=== PATIENT | female | born 1985 | race Hispanic/Latino ===

== ENCOUNTER 2019-06-03 14:29 | Outpatient (CLI) | payer MEDICAID ==
--- NOTE | 2019-06-03 15:23 | ULT ---
Exam: Pelvic ultrasound HISTORY: Pelvic pain COMPARISON: None TECHNIQUE: Multiple grayscale and color Doppler images were obtained in a transabdominal and transvag inal pelvic ultrasound. Spectral analysis of the Doppler waveforms of the ovaries were performed. FINDINGS: There is a fluid collection seen within the endometrial canal which contains both a pole and a yolk sac. The crown-rump length measures 2.7 mm corresponding to gestational age by ultrasound of 5 weeks and 6 days. Cardiac Doppler evaluation demonstrates heart tones with a heart rate o f 109 bpm. While this is diminished, this is likely attributable to early intrauterine gestation. There is slight heterogeneity in a subchorionic location; although, a discrete collection is not pres ent. Findings are worrisome for small subchorionic hemorrhage along the lower aspect of the gestational sac. The ovaries demonstrate a normal sonographic appearance bilaterally with arterial flow documented in each ovary. No free fluid is seen in the cul-de-sac. IMPRESSION: 1. Suggestion of small subchorionic hemorrhage which is difficult to accurately measure as there is o nly an area of ill-defined heterogeneity. Short interval follow-up evaluation is recommended. 2. Single intrauterine gestation with heart tones documented. Gestational age by measurement of the crown-rump length is 5 weeks and 6 days.
== END 2019-06-03 14:30 | disposition home or self-care (01) ==
LOC: BICULT 14:29
PROVIDERS: ATTEND Nurse Practitioner Family
DX: Z34.91 Encounter for supervision of normal pregnancy, unspecified, first trimester (principal); Z3A.01 Less than 8 weeks gestation of pregnancy
CPT/HCPCS: 76856

== ENCOUNTER 2019-09-08 14:43 | Outpatient (CLI) | payer OTHER ==
--- NOTE | 2019-09-08 15:33 | ULT ---
EXAM: OB ultrasound COMPARISON: None HISTORY: female. Evaluate size, dates, and anatomy. TECHNIQUE: Multiplanar grayscale and color Doppler transabdominal sonographic images are obtained. FINDINGS: There is a single intrauterine gestation in transverse lie with the head to the maternal ri ght presentation. Cardiac Doppler demonstrates heart tones with a heart rate of 138 beats per minute. The placenta is located anteriorly and appears borderline low lying. Follow-up eval uation in 4-6 weeks is recommended. There is a normal amount of amniotic fluid with an amniotic fluid index of 16.92 centimeters. The cervical length based on transabdominal imaging measures 4.2 ce ntimeters. biometry measurements: BPD 4.75 cm -- 20 weeks 3 days HC 17.54 cm -- 20 weeks 1 day AC 15.57 cm -- 20 weeks 6 days FL 3.26 cm -- 20 weeks 2 days The estimated gestational age by ultrasound is 20 weeks 3 day with an TYSHAWN on01/23/2020. Gestational age by the last menstrual period is 20 weeks 1 day. The estimated weight by ultrasound is 354 g (12 ounces). This represents 62 percentile for feta l weight. A 4 chambered heart is visualized. The cerebellum, visualized portions of the spine, kidneys, u rinary bladder, and cord insertion demonstrate a normal sonographic appearance. A three-vessel cord is not visualized, but there is flow on either side of the urinary bladder sugges ting a three-vessel cord.. The nose and lips are not well delineated on this exam. No definite anomalies are seen. IMPRESSION: 1. Single intrauterine gestation in transverse presentation with heart tones documented. Estima rose gestational age by ultrasound is 20 weeks 3 days. 2. Estimated weight is 354 g (12 ounces). 3. Amniotic fluid index is 16.92 centimeters. 4. There is suggestion of a borderline low-lying placenta. Follow-up evaluation in 4-6 weeks is recom mended.
== END 2019-09-08 14:44 | disposition home or self-care (01) ==
LOC: BICULT 14:43
PROVIDERS: ATTEND Family Medicine
DX: Z34.82 Encounter for supervision of other normal pregnancy, second trimester (principal); Z3A.20 20 weeks gestation of pregnancy
CPT/HCPCS: 76805

== ENCOUNTER 2020-01-19 13:36 | Inpatient (IN) | payer OTHER ==
[~2020-01-19 13:36] MED LIST: Bupivacaine 0.25% HCL 30 ML VIAL ONE
[2020-01-19] MEDS ORDERED: NS w/ Oxytocin 10 units 500 ML IV SCH ×2 (22:17)
[2020-01-19] MEDS ORDERED: Misoprostol 200 MCG TAB PR PRN (22:17)
[2020-01-19] MEDS ORDERED: NS / Oxytocin 40 units/1000ml 1,000 ML IV PRN (22:17)
[2020-01-19] MEDS ORDERED: Diphenoxylate HCl/Atropine Tablet PO PRN (22:17)
[2020-01-19] MEDS ORDERED: Carboprost 250 MCG/ML AMP IM PRN (22:17)
[2020-01-19] MEDS ORDERED: hydrALAZINE 20 MG/ML VIAL SLOW IVP PRN (22:17)
[2020-01-19] MEDS ORDERED: Lidocaine 1% (PF) 30 ML VIAL SC PRN (22:17)
[2020-01-19] MEDS ORDERED: Methylergonovine 0.2 MG/ML VIAL IM PRN (22:17)
[2020-01-19] MEDS ORDERED: Ondansetron PF 4 MG/2 ML Vial IVP PRN (22:17)
[2020-01-19] MEDS ORDERED: Ibuprofen 800 MG TAB PO PRN (22:17)
[2020-01-19] MEDS ORDERED: Butorphanol Tartrate 1 MG/ML VIAL SLOW IVP PRN (22:17)
[2020-01-19] MEDS ORDERED: Promethazine HCl 25 MG/ML VIAL IM PRN (22:17)
[2020-01-19] MEDS ORDERED: HYDROcodone/Acetaminophen 5/325 mg Tablet PO PRN (22:17)
[2020-01-19 22:23] VITALS: BMI 42.0
[2020-01-19] MEDS ORDERED: Penicillin G Potassium 5 MILL.UNITS in Sodium Chloride 0.9% 100 ML IVPB SCH (22:30)
[2020-01-19 22:39] LABS: Hemoglobin 12.3 g/dL (12.0-16.0); Mean Corpuscular HGB CONC 32.6 g/dL (32.0-36.0); Mean Corpuscular Hemoglobin 29.6 pg (27.0-31.0); Mean Corpuscular Volume 90.6 fL (78.0-98.0); Platelet Count 255 thou/uL (130-400); RBC Distribution Width 12.8 % (11.5-14.5); Red Blood Cell (RBC) Count 4.18 mill/uL (4.20-5.40); White Blood Cell (WBC) Count 13.6 thou/uL (4.8-10.8)
[2020-01-19] MEDS: Lactated Ringer's 1,000 ML IV SCH (22:55)
[2020-01-19] MEDS: Misoprostol 100 MCG TAB PO SCH (23:03)
[2020-01-19 23:16] LABS: Syphilis Antibody Nonreactive (Nonreactive); Syphilis Antibody Index 0.06 S/CO (<1.00 Non-Reactive)
[2020-01-19 23:54] LABS: HBSAg Index 0.14 S/CO (0-0.99); Hep B Surf Ag Non-Reactive S/CO (NonReactive)
[2020-01-20] MEDS: Misoprostol 100 MCG TAB PO SCH ×2 (03:37→15:21)
[2020-01-20] MEDS: Penicillin G 2.5 MILL.units 2.5 MILL.UNITS in Premix Bag 1 BAG IVPB SCH ×4 (03:37→15:21)
[2020-01-20] MEDS: Lactated Ringer's 1,000 ML IV SCH ×2 (05:55→10:02)
[2020-01-20] MEDS ORDERED: Fentanyl 4 mcg/Bup 0.1% Cadd 100 ML ONE (08:11)
[2020-01-20] MEDS ORDERED: Naloxone HCl 0.4 mg/ml Vial IVP PRN ×2 (09:12)
[2020-01-20] MEDS ORDERED: Lactated Ringer's 500 ML IV PRN (09:12)
[2020-01-20] MEDS ORDERED: Acetaminophen 325 MG TAB PO PRN (09:12)
[2020-01-20] MEDS ORDERED: Promethazine HCl 25 MG/ML VIAL IM PRN (09:12)
[2020-01-20] MEDS ORDERED: EPHEDRINE 25 MG/5 ML SYRINGE SLOW IVP PRN (09:12)
[2020-01-20] MEDS ORDERED: Ondansetron PF 4 MG/2 ML Vial IVP PRN ×2 (09:12→14:12)
[2020-01-20] MEDS ORDERED: diphenhydrAMINE 50 MG/ML VIAL IVP PRN (09:12)
[2020-01-20] MEDS ORDERED: Fentanyl 4 mcg/Bupivacaine 0.1% Cassette 100 ML EPIDURAL SCH (09:15)
[2020-01-20] MEDS ORDERED: Communication Order-Pharmacy FS SCH (09:15)
[2020-01-20] MEDS ORDERED: Milk Of Magnesia 30 ML UDCUP PO PRN (14:12)
[2020-01-20] MEDS ORDERED: Bisacodyl 10 MG SUPP PR PRN (14:12)
[2020-01-20] MEDS ORDERED: NS / Oxytocin 40 units/1000ml 1,000 ML IV SCH (14:12)
[2020-01-20] MEDS ORDERED: diphenhydrAMINE 25 MG CAP PO PRN (14:12)
[2020-01-20] MEDS ORDERED: hydrALAZINE 20 MG/ML VIAL SLOW IVP PRN (14:12)
[2020-01-20] MEDS ORDERED: HYDROcodone/Acetaminophen 5/325 mg Tablet PO PRN ×2 (14:12)
[2020-01-20] MEDS ORDERED: Benzocaine-Menthol 82.5 ML CAN TOP PRN (14:12)
[2020-01-20] MEDS ORDERED: NS / Oxytocin 40 units/1000ml 1,000 ML ONE (14:25)
[2020-01-20] MEDS: Ibuprofen 800 MG TAB PO SCH ×2 (15:24→21:58)
[2020-01-20] MEDS: Ferrous Sulfate 325 MG TAB PO SCH (18:07)
[2020-01-20] MEDS: Docusate Calcium (SURFAK) 240 MG CAP PO SCH (21:58)
[2020-01-21] MEDS: Ibuprofen 800 MG TAB PO SCH ×2 (05:21→12:32)
[2020-01-21] MEDS: Ferrous Sulfate 325 MG TAB PO SCH (07:24)
[2020-01-21 08:30] VITALS: BP 127/71; TEMP 98.1
[2020-01-21] MEDS: Docusate Calcium (SURFAK) 240 MG CAP PO SCH (09:00)
[2020-01-21] MEDS ORDERED: Prenatal Vitamin 1 TAB PO SCH (09:00)
[2020-01-21] MEDS ORDERED: Adacel (T-DAP) 0.5 ML SYRINGE IM ONE (09:00)
== END 2020-01-21 15:25 | disposition home or self-care (01) | DRG 807 ==
LOC: L&D 21:37 → 3SW 01-20 14:56 → EDSTATUS 01-25 13:35
PROVIDERS: ADMIT Family Medicine; ATTEND Family Medicine
PROC: 10907ZC Drainage of Amniotic Fluid, Therapeutic from Products of Conception, Via Natural or Artificial Opening (ICD-10-PCS; principal; 2020-01-20)
PROC: 10E0XZZ Delivery of Products of Conception, External Approach (ICD-10-PCS; 2020-01-20)
PROC: 0UQMXZZ Repair Vulva, External Approach (ICD-10-PCS; 2020-01-20)
DX: O99.824 Streptococcus B carrier state complicating childbirth (principal); Z37.0 Single live birth; Z3A.39 39 weeks gestation of pregnancy; O71.82 Other specified trauma to perineum and vulva
CPT/HCPCS: 36415; 51702; 85027; 86780; 86850; 86900; 86901; 87340; J2540; J2590; J3490; S0020

== ENCOUNTER 2021-06-24 20:58 | Emergency (ER) | payer OTHER ==
[2021-06-24] MEDS ORDERED: Ondansetron PF 4 MG/2 ML Vial ONE (21:22)
[2021-06-24 21:53] LABS: #Basophils 0.1 thou/uL (0.0-0.2); #Eosinphils 0.1 thou/uL (0.0-0.7); #Lymphocytes 2.3 thou/uL (1.20-3.40); #Monocytes 0.7 thou/uL (0.11-0.59); #Neutrophils 9.8 thou/uL (1.40-6.50); %Basophils 0.4 % (0.0-1.0); %Eosinophils 0.8 % (0.0-10.0); %Lymphocytes 17.6 % (21.0-51.0); %Monocytes 5.5 % (0.0-10.0); %Neutrophils 75.6 % (42.0-75.0); Hemoglobin 15.2 g/dL (12.0-16.0); Mean Corpuscular HGB CONC 34.2 g/dL (32.0-36.0); Mean Corpuscular Hemoglobin 31.6 pg (27.0-31.0); Mean Corpuscular Volume 92.3 fL (78.0-98.0); Mean Platelet Volume 8.8 fL (7.4-10.4); Platelet Count 292 thou/uL (130-400); RBC Distribution Width 11.9 % (11.5-14.5); Red Blood Cell (RBC) Count 4.82 mill/uL (4.20-5.40); White Blood Cell (WBC) Count 12.9 thou/uL (4.8-10.8)
[2021-06-24 22:13] LABS: ALT (SGPT) 16 U/L (8-55); AST (SGOT) 15 U/L (5-34); Albumin 4.3 g/dL (3.5-5.0); Alkaline Phosphatase 77 U/L (40-110); Anion Gap 16 mmol/L (10-20); BUN (Urea Nitrogen) 13 mg/dL (7.0-18.7); Bilirubin, Total 0.2 mg/dL (0.2-1.2); Calc. Creatinine Clearance 0 mL/min (70-130); Calcium 9.2 mg/dL (7.8-10.44); Carbon Dioxide 23 mmol/L (22-29); Chloride 104 mmol/L (98-107); Globulin 2.7 g/dL (2.4-3.5); Glucose 110 mg/dL (70-105); Lipase 10 U/L (8-78); Potassium 3.9 mmol/L (3.5-5.1); Sodium 139 mmol/L (136-145)
[2021-06-24] MEDS ORDERED: Morphine 4 MG/ML VIAL ONE (22:37)
[2021-06-24 22:54] LABS: Bacteria/HPF None Seen HPF (None Seen); Bilirubin Negative (Negative); Blood, Urine 1+ (Negative); Clarity Turbid (Clear); Glucose, Urine (Dipstick) Normal (Negative); Ketone, Urine 20 mg/dL (Negative); Leukocyte Negative Leu/uL (Negative); Nitrite Negative (Negative); Protein, Urine (Dipstick) Negative (Neg-Trace); RBC/HPF 0-3 HPF (0-3); Specific Gravity, Urine 1.018 (1.002-1.036); Squamous Epithelial 0-3 HPF (0-3); Urobilinogen Normal mg/dL (Less than 2); WBC/HPF 0-3 HPF (0-3); pH, Urine 7.5 (5.0-9.0)
== END 2021-06-24 23:22 | disposition home or self-care (01) ==
LOC: ERS 20:58
DX: R10.84 Generalized abdominal pain (principal); R11.2 Nausea with vomiting, unspecified; J45.909 Unspecified asthma, uncomplicated; F17.210 Nicotine dependence, cigarettes, uncomplicated
CPT/HCPCS: 80053; 81003; 81015; 83690; 85025; 96374; 96375; J2270; J2405

== ENCOUNTER 2022-10-06 10:19 | Outpatient (CLI) | payer OTHER | END 2022-10-06 10:20 | disposition home or self-care (01) | LOC: BICULT 10:19 | PROVIDERS: ATTEND Family Medicine | DX: O09.522 Supervision of elderly multigravida, second trimester (principal) | CPT/HCPCS: 76805 ==